=== PATIENT | female | born 1965 | race African-American/Black ===

== ENCOUNTER 2018-05-17 12:53 | Day surgery (SDC) | payer MEDICARE, MEDICAID ==
[~2018-05-17 12:53] MED LIST: FENTANYL CITRATE INJ/PF 100 MCG/2 ML AMPUL ONE; LACTATED RINGERS 1000 ML IV PRN; METRONIDAZOLE 500 MG/NS RTU 500 MG/100 ML RTUPB IV PRN; MIDAZOLAM 2 MG/2 ML INJ ONE; PROPOFOL INJ 200 MG/20 ML VIAL IV ONE
[2018-05-17 14:14] LABS: HEMATOCRIT 39.3 % (36.0-47.0); HEMOGLOBIN 13.4 g/dL (12.0-15.5); MEAN CORPUSCULAR HEMOGLOBIN 35.4 pg (27.0-33.4); MEAN CORPUSCULAR HGB CONC 34.1 g/dL (32.0-36.0); MEAN CORPUSCULAR VOLUME 104 fl (80-97); PLATELET COUNT 184 10^3/uL (150-450); RED BLOOD COUNT 3.78 10^6/uL (3.72-5.28); RED CELL DISTRIBUTION WIDTH 12.8 % (11.5-14.0)
[2018-05-17 14:33] LABS: ALANINE AMINOTRANSFERASE 27 U/L (9-52); ALBUMIN 4.1 g/dL (3.5-5.0); ALKALINE PHOSPHATASE 115 U/L (38-126); ANION GAP 11 (5-19); ASPARTATE AMINO TRANSFERASE 31 U/L (14-36); BILIRUBIN,DIRECT 0.4 mg/dL (0.0-0.4); BILIRUBIN,TOTAL 1.5 mg/dL (0.2-1.3); BLOOD UREA NITROGEN 8 mg/dL (7-20); CARBON DIOXIDE 24 mmol/L (22-30); CHLORIDE 112 mmol/L (98-107); GLUCOSE 101 mg/dL (75-110); POTASSIUM 4.9 mmol/L (3.6-5.0); SODIUM 146.6 mmol/L (137-145)
[2018-05-17] MEDS ORDERED: ONDANSETRON HCL INJ/PF 4 MG/2 ML SDV ONE (15:09)
[2018-05-17] MEDS ORDERED: ROCURONIUM BROMIDE INJ 50 MG/5 ML VIAL IV ONE (15:09)
[2018-05-17] MEDS ORDERED: LIDOCAINE 2% INJ-PF (20 MG/ML) 2 ML AMPUL ONE (15:09)
[2018-05-17] MEDS ORDERED: SUCCINYLCHOLINE CHLORIDE INJ 200 MG/10 ML VIAL ONE (15:09)
[2018-05-17] MEDS ORDERED: DEXAMETHASONE SOD PHOSPHATE INJ 4 MG/1 ML VIAL ONE (15:09)
[2018-05-17] MEDS ORDERED: LIDOCAINE 1%/EPINEPHRINE INJ 20 ML VIAL ONE (15:34)
[2018-05-17] MEDS ORDERED: LIDOCAINE 2% JELLY 30 ML TUBE ONE (15:34)
[2018-05-17] MEDS ORDERED: OXYCODONE-ACETAMINOPHEN 5-325 MG TABLET PO PRN (16:30)
--- NOTE | 2018-05-17 16:30 | Discharge Summary ---
Discharge Summary (SDC) - Discharge Final Diagnosis: fistula and hemorrhoids Date of Surgery: 05/17/18 Discharge Date: 05/17/18 Condition: Stable Treatment or Instructions: [facility] [address] [place] [id number] Hemorrhoid or Anal Surgery Discharge Instructions 1. General Information: a. DO NOT DRIVE a car or operate dangerous machinery for 4-7 days. b. DO NOT consume alcohol, tranquilizers, sleeping medications or any non- prescribed medications for 24 hours unless approved by your doctor or as long as taking narcotic prescription medications. c. DO NOT make important decisions or sign any important papers for the next 24 hours. d. Have a responsible person with you tonight. 2. Activity Restrictions: _ 4 weeks. a. Avoid heavy lifting or straining until you feel more comfortable. b. It is fine to go for walks, up and down steps, ride in a car. 3. Treatment: a. Tomorrow morning begin warm water sitz baths (soaks) with plain water. You may do 3-4 times per day or after bowel movements to help relieve spasm and pain. Place a dry gauze or panty liner over the sight to catch drainage and blood to help keep your clothing dry. b. You may use Tucks or other medicated wipes to help clean the area as needed. c. Cover the area with gauze and tape daily. Change dressing daily and after each bowel movement. 4. Medications: a. You may take the prescription tablets for pain one tablet every 6 hours. ( Toradol) c. Resume all normal medications unless a change is specified by your doctors. d. Stool softeners are encouraged to help you for 2-4 weeks to maintain a soft stool and avoid more painful bowel movements due to pain medication. Colace is often used. e. A numbing cream may be prescribed, this can be applied after sitz baths around the perianal area before the sight is covered with a gauze pad. f. Constipation is very common after anal surgery and you may take over-the- counter medications to help stimulate the bowel such as Milk of Magnesia, Senokot tablets, prune juice and drink plenty of water. 5. Diet: a. Begin with clear liquids and if you do well you may then advance to normal foods low in fat and protein at first. Smaller portion size may be forde the first night. b. Acidic (orange juice, tomato), foods high in ruffage (grapes, celery, asparagus) and spicy foods should be avoided for comfort the first 2-3 weeks since they can cause more burning sensation with bowel movements. 6..Follow Up Care: a. Please call the office to schedule a follow up appointment with your doctor for 2 weeks. In the event of any postoperative problems or questions or you may call the office during business hours or the On-Call physician evenings and weekends at [facility]. [facility] [phone] I understand the instructions for my postoperative care as described above and a copy has been given to me. Patient/Significant Other Witness Date Prescriptions: Ketorolac Tromethamine [Toradol 10 mg Tablet] 10 mg PO Q6HP PRN #20 tablet PRN Reason: Referrals: ANIBAL TSANG MD [Primary Care Provider] - Discharge Diet: As Tolerated Discharge Activity: No Lifting/Push/Pulling, Walk Frequently Report the Following to Your Physician Immediately: Increase in Pain, Fever over 101 Degrees, Swelling, Warmth, Drainage-Foul Smelling
--- NOTE | 2018-05-17 16:34 | Operative Report ---
Operative Report DATE OF SURGERY: 05/17/18 PREOPERATIVE DIAGNOSIS: 1. Recurrent right posterior lateral perianal abscess. 2. 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 Examination under anesthesia. 2. Complete excision of chronic right posterior lateral perianal abscess in conjunction with fistula in ano SURGEON: WILMAN PERRY 1ST PROGRAM INSTRUCTOR: KELSEY COSTA ANESTHESIA: GA TISSUE REMOVED OR ALTERED: Perianal abscess cavity in conjunction with fistula tract COMPLICATIONS: None ESTIMATED BLOOD LOSS: Scant INTRAOPERATIVE FINDINGS: See below PROCEDURE: Patient was taken from the preop holding her to the main operating room where general anesthesia was induced. She was placed in the prone jackknife position buttocks spread taped widely and perineum cleaned. It was then prepped and draped with Betadine Surgical plan surgical timeout conducted. Findings are significant for small collapsed external hemorrhoids. There was evidence of right posterior lateral perianal thickening, with recent site of drainage approximately 3 cm lateral to the anal verge. There were 2 peripheral chronic depressions which were small likely the site of previous drainage. The anal canal was dilated up to accept to adult fingers. The bullet anoscope was inserted into the anal canal and careful examination of the dentate line in a circumferential fashion was undertaken. We visualized and palpated no obvious anal rectal pathology, specifically no visible site of fistula entry point. We anesthetized the perianal tissue with quarter percent Marcaine. Using #15 blade and pickups, we excised an ellipse of skin extending from the perianal tissue 4 cm from the anal verge down to and including the anal verge tissue. We now undermined the surrounding skin, and using the 15 blade, excised in its entirety the previous abscess cavity, and associated scar tissue. We now followed the pathology down into the deep perianal space. Incidentally we did at the start of the dissection probe the abscess cavity and it seemed to track towards the anal canal but we did not find a discrete, defined tract opening into the anal canal proper. We continued dissecting the abscess cavity which tapered to a fistula tract which then tunneled into the external sphincter muscle, close to the anorectal canal. The tract continued on towards the internal sphincter. At this point I transected the bulk of the abscess tissue from the fistula tract and probe the fistula tract. The probe appeared to pass towards the perianal tissue proximally but I was not able to see an entry point. Continue to excise what was left of the tapering fistula tract until it ended above the sphincter muscle. At this point felt the operation was complete. We irrigated the wound cavity out well. Hemostasis was excellent. We packed some plain gauze in the recess of the wound, and tape of the gauze in place. Patient tolerated the procedure well. She was extubated after returning into the supine position, tolerated this well. The physician teacher assistant, Ms. Paz, provided assistance during this case by: Assisting retracting tissue, instillation of local anesthesia and closure of skin incisions.
[2018-05-17] MEDS ORDERED: ALBUTEROL SULFATE 0.083% NEB 2.5 MG/3 ML AMPUL NEB ONE (16:36)
[2018-05-17] MEDS ORDERED: FENTANYL CITRATE INJ/PF 100 MCG/2 ML AMPUL ONE (16:51)
[2018-05-17 18:30] VITALS: BP 138/84
== END 2018-05-17 18:25 | disposition home or self-care (01) ==
LOC: OROUT 12:53
PROVIDERS: ATTEND Surgery
DX: K60.3 Anal fistula (principal); K64.4 Residual hemorrhoidal skin tags; K70.9 Alcoholic liver disease, unspecified; F41.9 Anxiety disorder, unspecified; F17.210 Nicotine dependence, cigarettes, uncomplicated; I10 Essential (primary) hypertension; J45.909 Unspecified asthma, uncomplicated; Z79.01 Long term (current) use of anticoagulants; Z79.899 Other long term (current) drug therapy; Z88.6 Allergy status to analgesic agent
CPT/HCPCS: 36415; 85027; 81025; 80053; 88304 ×2; 46275; J2250; J3490 ×3; J1100; J3010; A9270 ×2; J0330; J2405; J2704; 902